=== PATIENT | female | born 1965 | race Hispanic/Latino ===

== ENCOUNTER 2019-07-27 12:05 | Emergency (ER) | payer OTHER, SELFPAY ==
[2019-07-27] MEDS ORDERED: ONDANSETRON HCL 4 MG/2 ML VIAL ONE (12:26)
[2019-07-27] MEDS ORDERED: FAMOTIDINE/PF 20 MG/2 ML VIAL IV ONE (12:27)
[2019-07-27 12:33] LABS: BASOPHILS % (AUTO) 0.3 % (0.0-5.0); EOSINOPHILS % (AUTO) 2.5 % (0.0-8.0); LYMPHOCYTES % (AUTO) 25.1 % (21.0-51.0); MEAN CORPUSCULAR HEMOGLOBIN 30.8 pg (27.0-33.0); MEAN CORPUSCULAR HGB CONC 34.3 g/dL (32.0-36.0); MEAN CORPUSCULAR VOLUME 89.7 fL (79-99); MONOCYTES % (AUTO) 5.7 % (3.0-13.0); NEUTROPHILS % (AUTO) 66.1 % (40.0-77.0); PLATELET COUNT (AUTO) 180 K/uL (130-400); RED BLOOD CELL COUNT(AUTO) 4.68 MIL/uL (4.00-5.50); RED CELL DISTRIBUTION WIDTH 13.1 % (11.0-15.5); WHITE BLOOD COUNT (AUTO) 6.1 K/uL (4.8-10.8)
[2019-07-27 12:34] LABS: APPEARANCE,URINE Clear (CLEAR); BILIRUBIN,URINE Negative (NEGATIVE); COLOR,URINE Yellow (YELLOW); GLUCOSE, URINE (UA) >=1000 mg/dL (NEGATIVE); KETONES,URINE Negative (NEGATIVE); LEUKOCYTE ESTERASE ,URINE Negative (NEGATIVE); NITRATE,URINE Positive (NEGATIVE); OCCULT BLOOD,URINE Negative (NEGATIVE); PROTEIN,URINE Negative (NEGATIVE)
[2019-07-27 12:45] LABS: RBC,URINE None Seen /HPF (0-1)
[2019-07-27 12:46] LABS: BACTERIA,URINE Moderate /HPF (None Seen); SQUAMOUS EPITHELIAL CELL,UR 0-2 /HPF (0-2)
[2019-07-27 12:55] LABS: CREATININE 1.3 mg/dL (0.5-1.5); POTASSIUM 3.8 mmol/L (3.5-5.1)
[2019-07-27 12:59] LABS: ALBUMIN 4.1 g/dL (3.5-5.0); BILIRUBIN,TOTAL 0.5 mg/dL (0.2-1.0); TOTAL PROTEIN, SERUM 7.8 g/dL (6.0-8.3)
[2019-07-27] MEDS ORDERED: INSULIN HUMULIN R 100 UNIT/ML 3ML ONE (13:17)
[2019-07-27] MEDS ORDERED: CEFTRIAXONE SODIUM 1 GM ONE (13:17)
== END 2019-07-27 14:44 | disposition home or self-care (01) ==
LOC: EDH 12:05
DX: K29.00 Acute gastritis without bleeding (principal); N39.0 Urinary tract infection, site not specified; E11.65 Type 2 diabetes mellitus with hyperglycemia; Z90.710 Acquired absence of both cervix and uterus; Z90.49 Acquired absence of other specified parts of digestive tract
CPT/HCPCS: 36415; 80053; 81001; 82150; 83690; 85025; 87077; 87088; 87186; 93005; 96374; 96375; 99284; J0696; J1815; J2405; J3490

== ENCOUNTER 2020-03-29 20:30 | Emergency (ER) | payer OTHER, SELFPAY ==
[2020-03-29] MEDS ORDERED: ASPIRIN 325 MG TABLET ONE (21:23)
[2020-03-29] MEDS ORDERED: KETOROLAC TROMETHAMINE 30MG/ML ONE (21:23)
[2020-03-29] MEDS ORDERED: SODIUM CHLORIDE 0.9% 1000ML 1,000 ML IV ONE (21:24)
[2020-03-29 21:31] LABS: APPEARANCE,URINE Clear (CLEAR); BILIRUBIN,URINE Negative (NEGATIVE); COLOR,URINE Yellow (YELLOW); GLUCOSE, URINE (UA) >=1000 mg/dL (NEGATIVE); KETONES,URINE Negative (NEGATIVE); LEUKOCYTE ESTERASE ,URINE Negative (NEGATIVE); NITRATE,URINE Negative (NEGATIVE); OCCULT BLOOD,URINE Negative (NEGATIVE); PH,URINE 5.5 (5.0-8.0); PROTEIN,URINE Negative (NEGATIVE); UROBILINOGEN,URINE 0.2 mg/dL (0.2-1.0)
[2020-03-29 21:41] LABS: BASOPHILS % (AUTO) 0.6 % (0.0-5.0); EOSINOPHILS % (AUTO) 5.8 % (0.0-8.0); HEMATOCRIT 37.9 % (36-48); LYMPHOCYTES % (AUTO) 38.3 % (21.0-51.0); MEAN CORPUSCULAR HEMOGLOBIN 29.9 pg (27.0-33.0); MEAN CORPUSCULAR HGB CONC 33.5 g/dL (32.0-36.0); MEAN CORPUSCULAR VOLUME 89.2 fL (79-99); MONOCYTES % (AUTO) 8.6 % (3.0-13.0); NEUTROPHILS % (AUTO) 46.3 % (40.0-77.0); PLATELET COUNT (AUTO) 154 K/uL (130-400); RED BLOOD CELL COUNT(AUTO) 4.25 MIL/uL (4.00-5.50); RED CELL DISTRIBUTION WIDTH 13.4 % (11.0-15.5); WHITE BLOOD COUNT (AUTO) 4.9 K/uL (4.8-10.8)
[2020-03-29 21:41] LABS: BACTERIA,URINE Moderate /HPF (None Seen); MUCUS,URINE Few LPF (None Seen); SQUAMOUS EPITHELIAL CELL,UR Few /HPF (0-2)
[2020-03-29 21:59] LABS: CREATININE 1.2 mg/dL (0.5-1.5); POTASSIUM 3.8 mmol/L (3.5-5.1)
[2020-03-29 22:04] LABS: B-TYPE NATRIURETIC PEPTIDE 24 pg/mL (0-100)
[2020-03-29 22:05] LABS: ALBUMIN 3.9 g/dL (3.5-5.0); BILIRUBIN,TOTAL 0.3 mg/dL (0.2-1.0); TOTAL PROTEIN, SERUM 7.5 g/dL (6.0-8.3)
[2020-03-29] MEDS ORDERED: IOHEXOL-350 75 ML VIAL IV ONE (22:14)
[2020-03-29] MEDS ORDERED: ORPHENADRINE CITRATE 30 MG/ML ML ONE (23:34)
[2020-03-30] MEDS ORDERED: CEFTRIAXONE SODIUM 1 GM ONE (00:06)
== END 2020-03-30 02:40 | disposition home or self-care (01) ==
LOC: EDH 20:30
DX: N39.0 Urinary tract infection, site not specified (principal); E86.0 Dehydration; R10.13 Epigastric pain; R07.89 Other chest pain; I10 Essential (primary) hypertension; E11.9 Type 2 diabetes mellitus without complications; Z90.710 Acquired absence of both cervix and uterus
CPT/HCPCS: 36415; 71045; 74177; 80053; 81001; 82550; 83690; 83880; 84145; 84484; 85025; 87077; 87088; 87186; 93005; 96361; 96374; 96375 ×2; 99285; J0696; J1885; J2360; J7030; Q9967

== ENCOUNTER → 2020-07-20 | Emergency (ER) | payer OTHER, SELFPAY ==
[~2020-07-20] VITALS: Ht 160 cm; Wt 73.5 kg
[~2020-07-20] MED LIST: LACTATED RINGERS 1000ML 1,000 ML IV SCH; METO-296 PO; NACL 0.9% 1000ML 1,000 ML IV ONE; NACL 0.9% 1000ML 1,000 ML IV SCH; ONDA4TAB10 PO; ONDANSETRON 4MG INJ IVP SCH; PANTOPRAZOLE 40 MG/VIAL IVP SCH; PROCHLORPERAZINE EDISYLATE 10 MG/2 ML VIAL IVP SCH
[2020-07-20 04:35] VITALS: BP 86/58
[2020-07-20 05:00] LABS: BASOPHILS % (AUTO) 0.2 % (0.0-5.0); EOSINOPHILS % (AUTO) 1.3 % (0.0-8.0); HEMATOCRIT 51.7 % (36-48); LYMPHOCYTES % (AUTO) 15.7 % (21.0-51.0); MEAN CORPUSCULAR HEMOGLOBIN 30.4 pg (27.0-33.0); MEAN CORPUSCULAR HGB CONC 32.9 g/dL (32.0-36.0); MEAN CORPUSCULAR VOLUME 92.5 fL (79-99); MONOCYTES % (AUTO) 6.3 % (3.0-13.0); PLATELET COUNT (AUTO) 297 K/uL (130-400); RED BLOOD CELL COUNT(AUTO) 5.59 MIL/uL (4.00-5.50); RED CELL DISTRIBUTION WIDTH 13.7 % (11.0-15.5); WHITE BLOOD COUNT (AUTO) 9.2 K/uL (4.8-10.8)
[2020-07-20 05:07] LABS: BILIRUBIN,TOTAL 0.6 mg/dL (0.2-1.0); CREATININE 2.2 mg/dL (0.5-1.5); POTASSIUM 4.2 mmol/L (3.5-5.1); TOTAL PROTEIN, SERUM 9.1 g/dL (6.0-8.3)
[2020-07-20 05:32] VITALS: BP 93/55
[2020-07-20 05:50] VITALS: BP 78/77
[2020-07-20 06:04] VITALS: BP 87/42
[2020-07-20 06:45] VITALS: BP 101/66
[2020-07-20 08:32] VITALS: BP 113/71
== END | disposition home or self-care (01) ==
LOC: EDH 03:53
DX: E86.0 Dehydration (principal); R11.2 Nausea with vomiting, unspecified; R19.7 Diarrhea, unspecified; E11.9 Type 2 diabetes mellitus without complications; E78.5 Hyperlipidemia, unspecified; I10 Essential (primary) hypertension; Z79.899 Other long term (current) drug therapy; Z90.49 Acquired absence of other specified parts of digestive tract; Z90.710 Acquired absence of both cervix and uterus
CPT/HCPCS: 36415; 80053; 83690; 84484; 85025; 93005; 96361; 96374; 96375; 99285; C9113; J0780; J2405; J7030; J7120

== ENCOUNTER 2021-06-12 16:43 | Emergency (ER) | payer OTHER, SELFPAY ==
[~2021-06-12] VITALS: Ht 160 cm; Wt 74.8 kg
[~2021-06-12 16:43] MED LIST changes: -LACTATED RINGERS 1000ML 1,000 ML IV SCH; -NACL 0.9% 1000ML 1,000 ML IV ONE; -NACL 0.9% 1000ML 1,000 ML IV SCH; -ONDANSETRON 4MG INJ IVP SCH; -PANTOPRAZOLE 40 MG/VIAL IVP SCH; -PROCHLORPERAZINE EDISYLATE 10 MG/2 ML VIAL IVP SCH
[2021-06-12 16:44] VITALS: BP 103/54
[2021-06-12 18:37] LABS: BASOPHILS % (AUTO) 0.7 % (0.0-5.0); HEMATOCRIT 45.5 % (36-48); LYMPHOCYTES % (AUTO) 33.5 % (21.0-51.0); MEAN CORPUSCULAR HEMOGLOBIN 29.6 pg (27.0-33.0); MEAN CORPUSCULAR HGB CONC 31.2 g/dL (32.0-36.0); MONOCYTES % (AUTO) 5.7 % (3.0-13.0); NEUTROPHILS % (AUTO) 53.5 % (40.0-77.0); PLATELET COUNT (AUTO) 302 K/uL (130-400); RED BLOOD CELL COUNT(AUTO) 4.79 MIL/uL (4.00-5.50); RED CELL DISTRIBUTION WIDTH 13.4 % (11.0-15.5); WHITE BLOOD COUNT (AUTO) 10.6 K/uL (4.8-10.8)
[2021-06-12 18:48] LABS: CREATININE 1.4 mg/dL (0.5-1.5); POTASSIUM 3.9 mmol/L (3.5-5.1)
[2021-06-12 18:55] LABS: ALBUMIN 3.7 g/dL (3.5-5.0); BILIRUBIN,TOTAL 0.3 mg/dL (0.2-1.0); TOTAL PROTEIN, SERUM 7.5 g/dL (6.0-8.3)
[2021-06-12] MEDS ORDERED: CYCL10TA16 PO (18:55)
[2021-06-12] MEDS ORDERED: NAPR500T6 PO (18:55)
[2021-06-12] MEDS ORDERED: DIAZEPAM 5 MG TABLET PO ONE (19:00)
[2021-06-12] MEDS ORDERED: KETOROLAC 30MG VIAL (30MG/ML) IM ONE (19:00)
== END 2021-06-12 19:53 | disposition home or self-care (01) ==
LOC: EDH 16:43
DX: M54.12 Radiculopathy, cervical region (principal); E11.9 Type 2 diabetes mellitus without complications; E78.00 Pure hypercholesterolemia, unspecified; I10 Essential (primary) hypertension; Z98.890 Other specified postprocedural states; Z90.49 Acquired absence of other specified parts of digestive tract
CPT/HCPCS: 36415; 80053; 84484; 85025; 93005; 96372; 99284; J1885

== ENCOUNTER 2022-10-04 17:46 | Emergency (ER) | payer BC ==
[~2022-10-04] VITALS: Ht 160 cm; Wt 77.1 kg
[~2022-10-04 17:46] MED LIST changes: +CYCL10TA16 PO; +NAPR500T6 PO
[2022-10-04 18:06] VITALS: BP 126/66; PULSE 119; RESP 16; O2SAT 97
[2022-10-04 19:15] LABS: BASOPHILS # (AUTO) 0.06 K/uL (0.00-0.20); BASOPHILS % (AUTO) 0.4 % (0.0-5.0); EOSINOPHILS # (AUTO) 0.02 K/uL (0.00-0.70); EOSINOPHILS % (AUTO) 0.1 % (0.0-8.0); HEMATOCRIT 40.5 % (36-48); IMMATURE GRANULOCYTE ABSOLUTE 0.15 K/uL (0-1); LYMPHOCYTES # (AUTO) 1.1 K/uL (1.0-4.8); MEAN CORPUSCULAR HEMOGLOBIN 30.2 pg (27.0-33.0); MEAN CORPUSCULAR HGB CONC 34.6 g/dL (32.0-36.0); MEAN CORPUSCULAR VOLUME 87.3 fL (79-99); MONOCYTES # (AUTO) 0.8 K/uL (0.1-1.0); MONOCYTES % (AUTO) 5.5 % (3.0-13.0); NEUTROPHILS # (AUTO) 12.1 K/uL (1.8-7.7); NEUTROPHILS % (AUTO) 84.9 % (40.0-77.0); PLATELET COUNT (AUTO) 200 K/uL (130-400); RED BLOOD CELL COUNT(AUTO) 4.64 MIL/uL (4.00-5.50); RED CELL DISTRIBUTION WIDTH 14.4 % (11.0-15.5); WHITE BLOOD COUNT (AUTO) 14.2 K/uL (4.8-10.8)
[2022-10-04 19:18] LABS: CREATININE 1.9 mg/dL (0.5-1.5)
[2022-10-04 19:25] LABS: ALBUMIN 3.5 g/dL (3.5-5.0); BILIRUBIN,TOTAL 1.1 mg/dL (0.2-1.0)
[2022-10-04] MEDS ORDERED: 0.9%NACL 1000ML 1,000 ML IV ONE ×2 (20:00)
[2022-10-04] MEDS ORDERED: INSULIN HUMULIN R 100 UNIT/ML 3ML IV ONE (20:00)
[2022-10-04 20:17] LABS: APPEARANCE,URINE TURBID (CLEAR); BILIRUBIN,URINE NEGATIVE (NEGATIVE); COLOR,URINE YELLOW (YELLOW); GLUCOSE, URINE (UA) 200 mg/dL (NEGATIVE); KETONES,URINE NEGATIVE (NEGATIVE); LEUKOCYTE ESTERASE ,URINE 500 Leu/uL (NEGATIVE); NITRATE,URINE NEGATIVE (NEGATIVE); OCCULT BLOOD,URINE LARGE (NEGATIVE); PH,URINE 5.5 (5.0-8.0); PROTEIN,URINE 200 mg/dL (NEGATIVE); UROBILINOGEN,URINE 0.2 mg/dL (0.2-1.0)
[2022-10-04 20:18] LABS: ADD UA MICROSCOPIC YES
[2022-10-04 20:25] LABS: BACTERIA,URINE FEW /HPF (None Seen); MUCUS,URINE FEW LPF (None Seen); SQUAMOUS EPITHELIAL CELL,UR FEW /HPF (0-2); UNCLASSIFIED CRYSTAL 3 /HPF (None Seen); WBC CLUMP MOD /HPF (0-1); WBC,URINE TNTC /HPF (0-1)
[2022-10-04] MEDS ORDERED: CEFTRIAXONE 1G VIAL IVPB ONE (20:30)
[2022-10-04] MEDS ORDERED: ACETAMINOPHEN 500 MG TABLET PO ONE (20:30)
[2022-10-04 20:38] LABS: SARS-CoV-2, RNA, NAAT NEGATIVE SARS CoV-2 (NEGATIVE)
[2022-10-04 20:43] LABS: INFLUENZA TYPE A Negative For Type A (NEGATIVE); INFLUENZA TYPE B Negative For Type B (NEGATIVE)
[2022-10-04 22:48] VITALS: TEMP 98.5
[2022-10-04] MEDS ORDERED: CEFU500T67 PO (22:59)
[2022-10-04] MEDS ORDERED: MECL-262 PO (23:00)
== END 2022-10-04 22:56 | disposition home or self-care (01) ==
LOC: EDH 17:46
DX: N39.0 Urinary tract infection, site not specified (principal); D72.829 Elevated white blood cell count, unspecified; E11.65 Type 2 diabetes mellitus with hyperglycemia; E78.00 Pure hypercholesterolemia, unspecified; M19.90 Unspecified osteoarthritis, unspecified site; I10 Essential (primary) hypertension; Z90.49 Acquired absence of other specified parts of digestive tract; Z90.710 Acquired absence of both cervix and uterus; Z20.822 Contact with and (suspected) exposure to COVID-19
CPT/HCPCS: 99284; 74176; 96374; 96367; 71045; 87635; 96375; 80053; 85025; 87077; 87088; 87186; 87804 ×2; 82948; 81001; 36415; 93005; J1815; C9803; J7030 ×2; J0696

== ENCOUNTER 2023-05-24 18:35 | Emergency (ER) | payer BC ==
[~2023-05-24] VITALS: Ht 160 cm; Wt 77.1 kg
[~2023-05-24 18:35] MED LIST changes: +CEFU500T67 PO; +MECL-262 PO
[2023-05-24 19:17] LABS: BASOPHILS # (AUTO) 0.02 K/uL (0.00-0.20); BASOPHILS % (AUTO) 0.3 % (0.0-5.0); EOSINOPHILS # (AUTO) 0.11 K/uL (0.00-0.70); EOSINOPHILS % (AUTO) 1.7 % (0.0-8.0); HEMATOCRIT 39.2 % (36-48); IMMATURE GRANULOCYTE ABSOLUTE 0.07 K/uL (0-1); LYMPHOCYTES # (AUTO) 1.4 K/uL (1.0-4.8); LYMPHOCYTES % (AUTO) 21.5 % (21.0-51.0); MEAN CORPUSCULAR HEMOGLOBIN 30.3 pg (27.0-33.0); MEAN CORPUSCULAR HGB CONC 34.2 g/dL (32.0-36.0); MEAN CORPUSCULAR VOLUME 88.7 fL (79-99); MONOCYTES # (AUTO) 0.4 K/uL (0.1-1.0); NEUTROPHILS # (AUTO) 4.3 K/uL (1.8-7.7); NEUTROPHILS % (AUTO) 68.4 % (40.0-77.0); PLATELET COUNT (AUTO) 132 K/uL (130-400); RED BLOOD CELL COUNT(AUTO) 4.42 MIL/uL (4.00-5.50); RED CELL DISTRIBUTION WIDTH 13.9 % (11.0-15.5); WHITE BLOOD COUNT (AUTO) 6.3 K/uL (4.8-10.8)
[2023-05-24] MEDS: 0.9%NACL 1000ML 1,000 ML IV ONE (19:18)
[2023-05-24 19:29] LABS: ALBUMIN 3.3 g/dL (3.5-5.0); BILIRUBIN,TOTAL 0.4 mg/dL (0.2-1.0); CREATININE 1.1 mg/dL (0.5-1.0)
[2023-05-24] MEDS: INSULIN HUMULIN R 100 UNIT/ML 3ML IV ONE (19:31)
[2023-05-24 19:43] LABS: POTASSIUM 4.8 mmol/L (3.5-5.1)
[2023-05-24 20:23] LABS: ADD UA MICROSCOPIC YES; APPEARANCE,URINE CLEAR (CLEAR); BILIRUBIN,URINE NEGATIVE (NEGATIVE); COLOR,URINE COLORLESS (YELLOW); GLUCOSE, URINE (UA) >=1000 mg/dL (NEGATIVE); KETONES,URINE NEGATIVE (NEGATIVE); LEUKOCYTE ESTERASE ,URINE 25 Leu/uL (NEGATIVE); NITRATE,URINE NEGATIVE (NEGATIVE); OCCULT BLOOD,URINE NEGATIVE (NEGATIVE); PROTEIN,URINE NEGATIVE (NEGATIVE); UROBILINOGEN,URINE 0.2 mg/dL (0.2-1.0)
[2023-05-24 20:25] LABS: MUCUS,URINE RARE LPF (None Seen); RBC,URINE 0-1 /HPF (0-1); SQUAMOUS EPITHELIAL CELL,UR RARE /HPF (0-2)
[2023-05-24 20:31] VITALS: BP 177/94; PULSE 98; RESP 17; O2SAT 99
== END 2023-05-24 21:08 | disposition home or self-care (01) ==
LOC: EDH 18:35
DX: E11.65 Type 2 diabetes mellitus with hyperglycemia (principal); E86.0 Dehydration; I10 Essential (primary) hypertension; E66.9 Obesity, unspecified; M19.90 Unspecified osteoarthritis, unspecified site; E78.00 Pure hypercholesterolemia, unspecified; Z90.49 Acquired absence of other specified parts of digestive tract; Z68.30 Body mass index [BMI] 30.0-30.9, adult; Z90.710 Acquired absence of both cervix and uterus
CPT/HCPCS: 99284; 96374; 96361; 80053; 85025; 82948 ×2; 82010; 81001; 36415; J1815; J7030

== ENCOUNTER 2023-10-14 10:09 | Emergency (ER) | payer BC ==
[~2023-10-14] VITALS: Ht 160 cm; Wt 79.4 kg
[~2023-10-14 10:09] MED LIST changes: +ONDA-243 PO; -ONDA4TAB10 PO
[2023-10-14] MEDS: TRIAMCINOLONE ACETONIDE 40 MG/ML 1ML VIAL IM ONE (10:54)
[2023-10-14] MEDS: ORPHENADRINE 60MG/2ML IM ONE (10:55)
[2023-10-14] MEDS: ketOROlac 30MG VIAL (30MG/ML) IM ONE (10:55)
[2023-10-14 11:21] LABS: RAPID GROUP A STREP negative (NEGATIVE)
[2023-10-14 11:25] LABS: SARS-CoV-2, RNA, NAAT NEGATIVE SARS CoV-2 (NEGATIVE)
[2023-10-14 11:30] LABS: INFLUENZA TYPE A Negative For Type A (NEGATIVE); INFLUENZA TYPE B Negative For Type B (NEGATIVE)
[2023-10-14] MEDS ORDERED: KETO10TA2 PO (12:00)
[2023-10-14 12:22] VITALS: BP 135/80; PULSE 95; RESP 16; TEMP 98.5; O2SAT 98
== END 2023-10-14 12:28 | disposition home or self-care (01) ==
LOC: EDH 10:09
DX: R53.1 Weakness (principal); E11.9 Type 2 diabetes mellitus without complications; E78.00 Pure hypercholesterolemia, unspecified; I10 Essential (primary) hypertension; M19.90 Unspecified osteoarthritis, unspecified site; Z20.822 Contact with and (suspected) exposure to COVID-19; Z79.899 Other long term (current) drug therapy; Z90.49 Acquired absence of other specified parts of digestive tract; Z90.710 Acquired absence of both cervix and uterus; Z98.890 Other specified postprocedural states
CPT/HCPCS: 99284; 87635; 87880; 87804 ×2; 96372 ×3; J3301; J1885; J2360

== ENCOUNTER 2024-07-04 15:20 | Emergency (ER) | payer BC ==
[~2024-07-04] VITALS: Ht 160 cm; Wt 79.4 kg
[~2024-07-04 15:20] MED LIST changes: +KETO10TA2 PO; +NAPR-1506 PO; -NAPR500T6 PO
[2024-07-04] MEDS: ORPHENADRINE 60MG/2ML IM ONE (16:06)
[2024-07-04] MEDS: TRIAMCINOLONE ACETONIDE 40 MG/ML 1ML VIAL IM ONE (16:06)
[2024-07-04 16:45] VITALS: BP 156/78; PULSE 95; RESP 20; TEMP 98.1; O2SAT 98
[2024-07-04] MEDS: ketOROlac 30MG VIAL (30MG/ML) IM ONE (16:48)
--- NOTE | 2024-07-04 16:49 | ERN ---
General Chief Complaint: Back Pain-No Injury Stated Complaint: BACK PAIN Time Seen by MD: 15:22 Source: patient History of Present Illness Initial Comments IN HIS IS A 58-YEAR-OLD FEMALE COMING IN TO BE EVALUATED FOR LOWER BACK PAIN. THE PAIN RADIATES GLUTEAL REGION LEG. STATES THAT SHE HAS NOT HAD ANY TRAUMA OR ANY OTHER REASON FOR BACK PAIN. SHE DOES STATE THAT SHE HAS A HISTORY OF OSTEOARTHRITIS ARTHRITIS. Allergies: Coded Allergies: No Known Drug Allergies (Verified Allergy, 08/24/11) Home Meds Active Scripts Ketorolac Tromethamine (Ketorolac Tromethamine) 10 Mg Tablet, 10 MG PO BID for 5 Days, #10 TAB Prov:ANAY CARMICHAEL 10/14/23 Meclizine HCl (Antivert) 25 Mg Tab.chew, 25 MG PO TIDP PRN for VERTIGO, #20 TAB.CHEW Prov:MICHEAL SALDIVAR MD 10/04/22 Cefuroxime Axetil (Cefuroxime) 500 Mg Tablet, 500 MG PO BID, #20 TAB Prov:MICHEAL SALDIVAR MD 10/04/22 Metoclopramide HCl (Reglan) 10 Mg Tablet, 10 MG PO QID PRN for HEADACHE, #60 TAB 2 Refills Prov:EBEN DURAN Sr., MD 07/20/22 Naproxen (Naproxen) 500 Mg Tablet.dr, 500 MG PO BIDPC, #15 TAB Prov:LOURDES HALLP 06/12/21 Cyclobenzaprine HCl (Flexeril) 10 Mg Tab, 10 MG PO TID, #15 TAB Prov:LOURDES HALLP 06/12/21 Ondansetron (Ondansetron Odt) 4 Mg Tab.rapdis, 4 MG PO Q6HPRN, #20 TAB 0 Refills Prov:ENA OTT MD 07/20/20 Metoclopramide HCl (Reglan) 10 Mg Tablet, 10 MG PO TIDP, #20 TAB 0 Refills Prov:ENA OTT MD 07/20/20 Past Medical History Past Medical History: Arthritis, Diabetes-Type II, Hypertension Medical History Other: OSTEOPOROSIS Past Surgical History: Hysterectomy, Cholecystectomy, Social History Social History: Negative, Lives with family Female( History) History: Not Applicable ROS Dictation CONSTITUTIONAL: NO CHILLS, NO FEVER, NO WEAKNESS, NO DIAPHORESIS, NO MALAISE. HEAD/FACE: NO SIGNS OF TRAUMA. EENT: NO EYE PAIN, NO BLURRED VISION, NO TEARING, NO DOUBLE VISION, NO EAR PAIN, NO EAR DISCHARGE, NO NOSE PAIN, NO NASAL CONGESTION, NO THROAT PAIN, NO THROAT SWELLING, NO MOUTH PAIN. RESPIRATORY: NO COUGH, NO ORTHOPNEA, NO SOB, NO STRIDOR, NO WHEEZING. CARDIOVASCULAR: NO CHEST PAIN, NO EDEMA, NO PALPITATIONS, NO SYNCOPE. GASTROINTESTINAL/ABDOMINAL: NO ABDOMINAL PAIN, NO CONSTIPATION, NO DIARRHEA, NO NAUSEA, NO VOMITING. GENITOURINARY: NO ABNORMAL DISCHARGE, NO DYSURIA, NO FREQUENT URINATION, NO HEMATURIA. NO COMPLAINTS OF PAIN IN THE GENITALS. MUSCULOSKELETAL: BACK PAIN, NO GOUT, NO JOINT PAIN, NO JOINT SWELLING, NO MUSCLE PAIN, NO MUSCLE STIFFNESS, NO NECK PAIN. INTEGUMENTARY: NO CHANGE IN COLOR, NO CHANGE IN HAIR/NAILS, NO DRYNESS, NO LESION, NO LUMPS, NO RASH. NEUROLOGICAL/PSYCH: NO ANXIETY, NOT DEPRESSED, NO EMOTIONAL PROBLEM, NO HEADACHE, NO NUMBNESS, NO PRE-EXISTING DEFICIT, NO HISTORY OF SEIZURES, NO TREMORS, NO WEAKNESS. HEMATOLOGIC/LYMPHATIC: NOT ANEMIC, NO HISTORY OF BLOOD CLOTS, NO APPARENT BLEEDING, NO BRUISING, GLANDS NOT SWOLLEN. ALL SYSTEMS NEGATIVE, EXCEPT NOTED. Physical Exam Physical Exam Dictation VITAL SIGNS: REVIEWED. GENERAL APPEARANCE: ALERT, ORIENTED X3, NO ACUTE DISTRESS, OBESE. HEAD AND FACE: NON-TRAUMATIC. EYES: PERRL, PINK CONJUNCTIVAS, EYELID NO TRAUMA, ANTERIOR CHAMBER CLEAR. EARS: PINNAS INTACT AND NO SIGNS OF TRAUMA OR ERYTHEMA. EAR CANALS CLEAR AND NO DISCHARGE. TMS NO ERYTHEMA. NOSE: NO DISCHARGE, NO BLEEDING. OROPHARYNX: MOUTH NORMAL, TEETH NO CARIES, TONGUE PINK. PHARYNX CLEAR, NO ERYTHEMA. TONSILS NO EXUDATES, NO ABSCESSES NOTED. MUCOUS MEMBRANE MOIST. NECK: SUPPLE, NON-TENDER, NO THYROMEGALY, NO MASSES, NO JVD, NO BRUITS. BREAST: DEFERRED. CHEST: NO TENDERNESS, NO CREPITUS, NO PARADOXICAL MOVEMENT, NO RETRACTIONS. LUNGS: CLEAR, WELL-VENTILATED, SYMMETRIC, NO RALES, NO WHEEZING, NO RHONCHI, NO STRIDOR, GOOD BREATH SOUNDS BILATERALLY. HEART: REGULAR RATE, REGULAR RHYTHM, NO MURMUR, NO GALLOPS. VASCULAR: NO PERIPHERAL EDEMA. ABDOMEN: SOFT, POSITIVE BOWEL SOUNDS, NONDISTENDED, NO GUARDING, NONTENDER, NO REBOUND, NO MASSES NO HEPATOMEGALY, NO SPLENOMEGALY, NO DIAZ'S SIGN, NO HERNIAS. RECTAL: DEFERRED. GENITAL: DEFERRED. NEUROLOGICAL: NORMAL SPEECH, GROSS MOTOR FUNCTION INTACT, GROSS SENSORY FUNCTION INTACT. MUSCULOSKELETAL: NECK NONTENDER, FULL RANGE OF MOTION, MANAGER PROCESS EXCELLENCE, FULL RANGE OF MOTION. PIRIFORMIS MUSCLE TENDERNESS ON PALPATION BILATERAL EXTREMITIES: NONTENDER, FULL RANGE OF MOTION. SKIN: COLOR PINK, DRY, NO TURGOR, NO RASH, NO LACERATIONS, NO ABRASIONS, NO CONTUSIONS. LYMPHATICS: DEFERRED. Results Laboratory and Microbiology Labs Reviewed?: Yes EKG/XRAY/US/CT/MRI X-RAY Comment [address] [place] [address] [id number] IMAGING REPORT Signed PATIENT: DANNY MURPHY MR#: [id number] : 1965 SEX: F AGE: 58 LOCATION: [facility] ORDER 153 STATUS: [facility] REPORT#: [id number] SERVICE [id number] REASON: BACK PAIN ORDERING PHYSICIAN: ANTWON SANDERSON MD PROCEDURE: LUMB 2 3VW - LUMBAR SPINE 2-3VWS LUMBAR SPINE 2-3VWS HISTORY: Acute onset of back pain COMPARISON: None FINDINGS: 3 images of the lumbar spine were obtained. Disc space narrowing is seen at the L5-S1 level. Round calcific densities are noted in the left anterior aspect of the L4 along the psoas margin. This may be related to dystrophic calcifications. Postcholecystectomy changes are seen. There is straightening of normal lordotic curvature which may be related to muscle spasm or positioning. No loss of vertebral height is seen. No fracture or dislocation is seen. Degenerative changes are seen. IMPRESSION: 1. No fracture is seen. DICTATED BY: ROBERT HOGAN MD DATE: 07/04/241651 ELECTRONICALLY SIGNED BY: ROBERT HOGAN MD DATE: 07/04/241655 [facility] MDM: DIFFERENTIAL DIAGNOSIS: SCIATICA, LUMBAR STRAIN, BACK PAIN, RATIONALE: TESTS CONSIDERED AND ORDERED SECONDARY TO SHARED DECISION MAKING INCLUDE: PREVIOUS OUTSIDE RECORDS REVIEWED: OLD ER VISITS. RISK OF COMPLICATION AND/OR MORBIDITY OR MORTALITY OF PATIENT MANAGEMENT: NONE MEDICATIONS-PER MEDICATION RECONCILIATION PATIENT IS A 58-YEAR-OLD FEMALE COMING IN TO BE EVALUATED FOR PAIN RADIATING DOWN HER LEGS. SHE STATES THAT SHE DID NOT HAVE ANY TRAUMATIC EVENT. PHYSICAL EXAM STRAIGHT LEG TEST POSITIVE BILATERAL PIRIFORMIS MUSCLE TENDERNESS X-RAY DID NOT DISCLOSE ACUTE FINDINGS. PATIENT WILL BE DISCHARGED WITH A DIAGNOSIS SCIATICA. MEDICATION WILL BE PROVIDED FOR SYMPTOMATIC RELIEF. I DID ADVISED HER APPROPRIATE FOLLOW UP WITH PCP IN 1-2 DAYS. ED Course Orders Procedure Category Date Status Time Lumbar Spine 2-3vws RAD 07/04/24 Resulted 15:34 Orphenadrine Citrate PHA 07/04/24 Complete (Norflex) 16:00 Triamcinolone Acet PHA 07/04/24 Complete 40mg/Ml 1ml (Kenalog 16:00 Ketorolac PHA 07/04/24 Complete Tromethamine 30mg/Ml 17:00 Current Medications Medications (Trade) Dose Ordered Sig/Alejandra Route PRN Reason Start Time Stop Time Status Last Admin Dose Admin Ketorolac Tromethamine (toRADol) 30 mg ONCE ONCE IM 07/04/24 17:00 07/04/24 17:01 DC 07/04/24 16:48 Orphenadrine Citrate (Norflex) 60 mg ONCE ONCE IM 07/04/24 16:00 07/04/24 16:01 DC 07/04/24 16:06 Triamcinolone Acetonide (Kenalog 40) 40 mg ONCE ONCE IM 07/04/24 16:00 07/04/24 16:01 DC 07/04/24 16:06 Vital Signs Date Time Temp Pulse Resp B/P (MAP) Pulse Ox O2 Delivery O2 Flow Rate FiO2 07/04/24 16:45 98.1 95 20 156/78 98 Room Air* 0 21 07/04/24 15:35 98.1 97 20 181/89 98 Room Air DX & DISP Disposition: Discharge Departure Impression: Primary Impression: Sciatica Condition: Stable Scripts Methocarbamol (Robaxin) 750 Mg Tab 1 TAB PO BID for 5 Days, #10 TAB 0 Refills Prov: ANTWON SANDERSON MD 07/04/24 Naproxen (Naproxen) 500 Mg Tablet 1 TAB PO BID for pain for 7 Days, #14 TAB 0 Refills Prov: ANTWON SANDERSON MD 07/04/24 Additional Instructions: FOLLOW-UP WITH PRIMARY CARE PROVIDER IN 1 TO 2 DAYS. TAKE MEDICATIONS DIRECTED HERE IN THE EMERGENCY ROOM. OKAY TO CONTINUE HOME MEDICATIONS UNLESS OTHERWISE DISCUSSED DURING YOUR VISIT IN THE EMERGENCY ROOM TODAY. RETURN TO YOUR NEAREST EMERGENCY ROOM IF SYMPTOMS WORSEN OR IF THERE IS NO IMPROVEMENT. CALL 911 IF YOU NEED IMMEDIATE ASSISTANCE. TAKE TYLENOL [id number] NEEDED AND IF NO CONTRAINDICATIONS ARE PRESENT. INCREASE ORAL HYDRATION. A WOUND CULTURE OR URINE CULTURE WAS ORDERED HERE IN THE EMERGENCY ROOM DEPARTMENT PLEASE FOLLOW-UP WITH PRIMARY CARE PROVIDER AND ADVISE THEM TO GET REPEAT PORTS FROM OUR FACILITY. IF YOU HAD ANY ANDRÉS WRAP/SPLINTS THAT WERE APPLIED HERE, PLEASE DO NOT REMOVE THEM UNTIL YOU SEE YOUR PRIMARY CARE OR SPECIALTY. REFERRALS: Referrals: TALON HOWARD DO (PCP) Time of Disposition: 17:09 ANTWON SANDERSON MD July 04, 2024 16:49
--- NOTE | 2024-07-04 16:56 | HMCIMG ---
LUMBAR SPINE 2-3VWS HISTORY: Acute onset of back pain COMPARISON: None FINDINGS: 3 images of the lumbar spine were obtained. Disc space narrowing is seen at the L5-S1 level. Round calcific densities are noted in the left anterior aspect of the L4 along the psoas margin. This may be related to dystrophic calcifications. Postcholecystectomy changes are seen. There is straightening of normal lordotic curvature which may be related to muscle spasm or positioning. No loss of vertebral height is seen. No fracture or dislocation is seen. Degenerative changes are seen. IMPRESSION: 1. No fracture is seen.
[2024-07-04] MEDS ORDERED: METH-662 PO (17:09)
[2024-07-04] MEDS ORDERED: NAPR-1194 PO (17:09)
== END 2024-07-04 17:14 | disposition home or self-care (01) ==
LOC: EDH 15:20
DX: M54.40 Lumbago with sciatica, unspecified side (principal); E11.9 Type 2 diabetes mellitus without complications; I10 Essential (primary) hypertension; M19.90 Unspecified osteoarthritis, unspecified site; Z90.49 Acquired absence of other specified parts of digestive tract; Z90.710 Acquired absence of both cervix and uterus; Z98.890 Other specified postprocedural states
CPT/HCPCS: 99284; 72100; 96372; J1885; J3301; J2360